=== PATIENT | female | born 1985 | race Caucasian/White ===

== ENCOUNTER → 2021-01-04 | Outpatient (CLI) | payer OTHER ==
--- NOTE | 2021-01-05 14:42 | SLEEPCENT ---
DATE: 01/04/2021 PROCEDURE: Nocturnal polysomnography with CPAP titration. ORDERED BY: Juana Badillo. Nocturnal polysomnography was performed for the titration of pressure therapy in this patient with obstructive sleep apnea syndrome. For testing, a ResMed F301 nasal mask of small size was used. 4 cm of water pressure were applied to the circuit, and the lights were extinguished. 7 hours and 54 minutes of data were reviewed. There were 448.5 minutes of sleep identified. Sleep latency was mildly prolonged at 18 minutes. REM sleep occurred as expected at 85.5 minutes. Sleep architecture was good with 4 REM cycles. Overall sleep efficiency 95.3%. The electrocardiogram showed a sinus rhythm with an average heart rate of 65 beats per minute. EEG showed some minor alpha intrusion into non-REM stages. No focal events were identified, and there were normal waveforms for wake and sleep. Respiratory events were best palliated with CPAP at a pressure of 8 and remaining measures of sleep physiology were normal. IMPRESSION: Obstructive sleep apnea syndrome (G47.33). RECOMMENDATION: Nightly use of pressure therapy, 8 cm of water. SJose E Graf
== END ==
LOC: M SLEEP 20:00
PROVIDERS: ATTEND Nurse Practitioner Family
DX: G47.33 Obstructive sleep apnea (adult) (pediatric) (principal)

== ENCOUNTER → 2021-05-09 | Outpatient (CLI) | payer OTHER | LOC: M WHC 08:46 | PROVIDERS: ATTEND Family Medicine | DX: Z12.31 Encounter for screening mammogram for malignant neoplasm of breast (principal); N63.13 Unspecified lump in the right breast, lower outer quadrant; Z80.0 Family history of malignant neoplasm of digestive organs | CPT/HCPCS: 77066; G0279 ==

== ENCOUNTER → 2021-08-16 | Outpatient (CLI) | payer OTHER ==
[~2021-08-16] MED LIST: ACETAMINOPHEN 325 MG TAB As Ordered ONE; LIDOCAINE 1% MDV 20ML VIAL As Ordered ONE
[2021-08-16 15:04] LABS: APPEARANCE, CSF CLEAR (CLEAR); COLOR, CSF COLORLESS (COLORLESS); CSF TUBE# CELL CNT TUBE 3
[2021-08-16 15:15] VITALS: BP 153/90
[2021-08-16 15:19] LABS: CSF TUBE# GLU TUBE 1; CSF TUBE# TP TUBE 1; GLUCOSE CSF 62 MG/DL (40-75); TOTAL PROTEIN,CSF 30 MG/DL (15-45)
== END ==
LOC: M IRPRO 11:50
PROVIDERS: ATTEND Psychiatry & Neurology Neurology
DX: G35 Multiple sclerosis (principal)

== ENCOUNTER → 2022-01-09 | Outpatient (CLI) | payer OTHER | LOC: M WHC 07:01 | PROVIDERS: ATTEND Physician Assistant | DX: R10.84 Generalized abdominal pain (principal) ==